=== PATIENT | female | born 1985 ===

== ENCOUNTER 2023-01-11 15:31 | Emergency (ER) | payer SELFPAY ==
--- NOTE | ~2023-01-11 | CT_ITS ---
CT HEAD WITHOUT IV CONTRAST CT CERVICAL SPINE WITHOUT IV CONTRAST INDICATION: Neck pain status post fall. COMPARISON: None available. TECHNIQUE: Multidetector CT acquisitions of the head and cervical spine were obtained without IV contrast. Multiplanar reformats were acquired and utilized for image interpretation. This CT examination was performed using dose optimization techniques as appropriate, variously including the following: *Automated exposure control *Adjustment of mA and/or kV according to patient size (this includes techniques or standardized protocols for targeted exams where dose is matched to indication/reason for exam; i.e. extremities or head) *Use of iterative reconstruction technique FINDINGS: HEAD: There is no intracranial hemorrhage, hydrocephalus, extra-axial surface collection, midline shift, or other herniation pattern. Lyons to white matter differentiation is diffusely maintained without evidence of an evolved acute territorial infarct. The basilar cisterns are preserved. Anterior frontal scalp laceration. Near-complete opacification of the left maxillary sinus. Moderate mucosal thickening within the ethmoid air cells bilaterally. The mastoid air cells are clear. Indeterminate age nasal bone fractures that can be clinically correlated. CERVICAL SPINE: Straightening of the cervical lordosis. The vertebral body heights are maintained and the disc volumes are preserved. There are no acute fractures and there are no acute subluxations. Craniocervical junction is intact. There is no prevertebral soft tissue swelling. Imaged lung apices are clear. CT/CT cervical spine wo IV con IMPRESSION: - No acute intracranial abnormality. Anterior frontal scalp laceration. - Indeterminate age nasal bone fractures that can be clinically correlated. - No acute osseous abnormality within the cervical spine. - Near-complete opacification of the left maxillary sinus. Moderate mucosal thickening within the ethmoid air cells bilaterally.
[2023-01-11 15:31] VITALS: BP 112/79; PULSE 96; RESP 18; TEMP 36.7; O2SAT 99; BMI 23.2
--- NOTE | 2023-01-11 15:33 | ED_ITS ---
HPI - General Adult General Chief complaint: Wound/Laceration Stated complaint: Head laceration Related Data Allergies Allergy/AdvReac Type Severity Reaction Status Date / Time No Known Allergies Allergy Verified 01/11/23 15:34 [facility] Social History Social History Advance Directives: No Advance Directives Information Provided: No Physical Exam ED Vital Signs: BMI result Body Mass Index 23.2 Course Course Course Narrative: This is an RME: Additional HPI, ROS, PE not included below will be deferred to primary provider. 37 y o female presents for evaluation of a head laceration s/p falling into a metal pole 8AM this morning. Denies any LOC, no thinners. Endorsing diffuse headache, states she wrapped it with gauze herself. Also c/o neck pain. Denies N/V/D, dizziness, chest pain, shortness of breath, abdominal pain, visual changes. UTD on tetanus Plan -- CT head and neck Discharge Plan Discharge Clinical Impression: Eloped from emergency department Patient Disposition: Left W/O Completing Treatment Discharge Date/Time: 01/11/23 20:10
== END 2023-01-11 20:10 | disposition left against medical advice (07) ==
LOC: HO.ED 20:02
PROVIDERS: Emergency Provider Emergency Medicine
DX: S01.91XA Laceration without foreign body of unspecified part of head, initial encounter (principal); R51.9 Headache, unspecified; M54.2 Cervicalgia; Y28.9XXA Contact with unspecified sharp object, undetermined intent, initial encounter; Y93.9 Activity, unspecified; Y92.9 Unspecified place or not applicable; Y99.9 Unspecified external cause status
CPT/HCPCS: 70450; 72125; 99281; 99284